=== PATIENT | female | born 1970 | race Caucasian/White ===

== ENCOUNTER 2019-10-19 10:32 | Day surgery (SDC) | payer OTHER ==
[~2019-10-19 10:32] MED LIST: PRED5 PO; [UNRECOGNIZED DRUG - OTHER]
[2019-10-19 12:38] LABS: Performing Lab VERACYTE; Test Name FNA
[2019-10-25 10:01] LABS: Result SEE PATHOTH RESULTS
== END 2019-10-19 23:20 | disposition home or self-care (01) ==
LOC: US 10:32
PROVIDERS: Registered Nurse Community Health
DX: E04.1 Nontoxic single thyroid nodule (principal); Z80.8 Family history of malignant neoplasm of other organs or systems
CPT/HCPCS: 10005